=== PATIENT | female | born 1940 | race Caucasian/White ===

== ENCOUNTER 2023-12-02 16:53 | Emergency (ER) | payer OTHER ==
[~2023-12-02] VITALS: Ht 152.4 cm; Wt 59.4 kg
[2023-12-02] MEDS: cloNIDine HCL 0.1 MG TAB PO ONE (17:33)
[2023-12-02] MEDS ORDERED: METO-289 PO (18:17)
[2023-12-02] MEDS ORDERED: TRAZ-228 PO (18:17)
[2023-12-02 18:34] VITALS: BP 143/60; PULSE 62; RESP 16; TEMP 98; O2SAT 93
== END 2023-12-02 18:39 | disposition home or self-care (01) ==
LOC: ER 16:53
DX: I10 Essential (primary) hypertension (principal); G47.00 Insomnia, unspecified; E78.5 Hyperlipidemia, unspecified
CPT/HCPCS: 93005